=== PATIENT | female | born 1985 | race Caucasian/White ===

== ENCOUNTER 2016-11-05 18:32 | Emergency (ER) | payer OTHER ==
[~2016-11-05] VITALS: Ht 167.6 cm; Wt 80.3 kg
[2016-11-05 18:42] VITALS: BP 121/71
== END 2016-11-05 20:46 | disposition home or self-care (01) ==
LOC: ER 18:34
DX: R07.9 Chest pain, unspecified (principal)
CPT/HCPCS: 36415; 71010; 84484; 93005; 99285; A4606; Z7610